=== PATIENT | male | born 1995 | race Caucasian/White ===

== ENCOUNTER 2018-03-13 20:52 | Emergency (ER) | payer MEDICAID, OTHER ==
[~2018-03-13] VITALS: Ht 165.1 cm; Wt 67.3 kg
[2018-03-13 23:08] LABS: BASOPHILS % 0.5 % (0.0-2.0); EOSINOPHILS % 0.3 % (0.0-5.0); HEMATOCRIT. 45.3 % (42.0-52.0); HEMOGLOBIN. 15.5 g/dL (14.0-18.0); LYMPHOCYTES % 16.5 % (20.0-50.0); MEAN CORPUSCULAR HEMOGLOBIN 30.5 pg (28.0-32.0); MEAN CORPUSCULAR VOLUME 89.5 fL (80.0-94.0); MEAN PLATELET VOLUME 10.5 fl (7.4-10.4); MONOCYTES % 6.4 % (2.0-8.0); NEUTROPHILS % 76.3 % (40.0-76.0); PLATELET 154 x1000/uL (130-400); RED BLOOD CELL COUNT 5.07 mill/uL (4.7-6.1)
[2018-03-13 23:13] LABS: CHLORIDE 105 mEq/L (98-107)
[2018-03-13 23:15] LABS: INR 1.1; PROTHROMBIN TIME 11.5 sec (9.4-11.6)
[2018-03-14] MEDS: POTASSIUM CHLORIDE 20MEQ TABLET SR PO NR ×3 (00:22→00:45)
[2018-03-14] MEDS ORDERED: SODIUM CHLORIDE 0.9% 500 ML IV ONE (00:30)
[2018-03-14 02:40] VITALS: BP 103/60
== END 2018-03-14 02:51 | disposition home or self-care (01) ==
LOC: ER 20:52
DX: R55 Syncope and collapse (principal); R10.9 Unspecified abdominal pain
CPT/HCPCS: 36415; 71045; 74176; 80053; 83690; 85025; 85610; 93005; 96360; 99285; J7040; Z7610

== ENCOUNTER 2019-03-19 20:32 | Emergency (ER) | payer OTHER ==
[~2019-03-19] VITALS: Ht 165.1 cm; Wt 79.1 kg
[2019-03-19 21:07] VITALS: BP 131/83
== END 2019-03-19 23:58 | disposition left against medical advice (07) ==
LOC: ER 20:32
DX: R06.02 Shortness of breath (principal); Z53.21 Procedure and treatment not carried out due to patient leaving prior to being seen by health care provider